=== PATIENT | female | born 1945 | race Two or more races ===

== ENCOUNTER 2021-01-07 17:05 | Emergency (ER) | payer MEDICARE ==
[~2021-01-07] VITALS: Ht 152.4 cm; Wt 61.0 kg
[2021-01-07] MEDS ORDERED: SODIUM CHLORIDE 0.9% 1,000 ML IV ONE (18:15)
[2021-01-07] MEDS ORDERED: ONDANSETRON HCL 4MG/2ML INJ IV ONE (18:15)
[2021-01-07] MEDS ORDERED: HYDROMORPHONE HCL/PF 2MG/ML CPJ IV ONE ×2 (18:15→22:45)
[2021-01-07 19:27] LABS: HEMATOCRIT. 35.7 % (36.0-48.0); HEMOGLOBIN. 12.3 g/dL (12.0-16.0); MEAN CORPUSCULAR HEMOGLOBIN 31.2 pg (28.0-32.0); MEAN CORPUSCULAR VOLUME 90.8 fL (81.0-99.0); MEAN PLATELET VOLUME 6.8 fl (7.4-10.4); PLATELET 251 x1000/uL (130-400); RED BLOOD CELL COUNT 3.93 mill/uL (4.2-5.4)
[2021-01-07 19:35] LABS: CHLORIDE 110 mEq/L (98-107)
[2021-01-07 19:39] LABS: INR 0.9; PARTIAL THROMBOPLASTIN TIME 27.9 sec (23.4-31.0); PROTHROMBIN TIME 10.1 sec (9.6-11.0)
[2021-01-07 20:23] LABS: PLATELET ESTIMATE NORMAL
[2021-01-08 00:10] VITALS: BP 126/85
== END 2021-01-08 00:12 | disposition short-term general hospital (02) ==
LOC: ER 17:05
DX: S72.102A Unspecified trochanteric fracture of left femur, initial encounter for closed fracture (principal); M25.562 Pain in left knee; M79.662 Pain in left lower leg; Y04.2XXA Assault by strike against or bumped into by another person, initial encounter; W03.XXXA Other fall on same level due to collision with another person, initial encounter; Y93.89 Activity, other specified; Y92.521 Bus station as the place of occurrence of the external cause; D72.829 Elevated white blood cell count, unspecified; D64.9 Anemia, unspecified; I10 Essential (primary) hypertension; I48.91 Unspecified atrial fibrillation; Z79.01 Long term (current) use of anticoagulants; Z79.899 Other long term (current) drug therapy
CPT/HCPCS: 36415; 71045; 73502; 73552; 73560; 80053; 85025; 85610; 85730; 86850; 86900; 86901; 93005; 96361; 96374; 96375; 96376; 99285; J1170; J2405; J7030